=== PATIENT | female | born 1970 | race Caucasian/White ===

== ENCOUNTER → 2016-08-16 07:09 | Day surgery (SDC) | payer MEDICARE, MEDICAID ==
--- NOTE | 2016-08-08 17:33 | HP ---
PREOPERATIVE HISTORY AND PHYSICAL EXAM: DATE OF ADMISSION/SURGERY: 08/16/16 DATE OF OFFICE VISIT/ENCOUNTER: 08/08/16 ATTENDING SURGEON: Abbey Dailey MD PROCEDURE: Right wrist carpal tunnel release. CHIEF COMPLAINT: Numbness and tingling, right hand. HISTORY OF PRESENT ILLNESS: This is a 46-year-old female who complains of numbness and tingling in her bilateral hands for approximately a year now, the right is worse than the left. She does not recall any specific injury; however , she does feel like symptoms began when she was doing some cleaning work that seemed to aggravate or start the symptoms. She did that for about a month, but is not doing that anymore. Despite stopping the work, she continues to have the symptoms. She had a nerve conduction study, which showed a right carpal tunnel syndrome, moderate in degree. She has tried conservative treatment including bracing and cortisone injections, however, symptoms persist. She is interested in pursuing more definitive treatment at this time in the form of a right carpal tunnel release. The patient is currently being treated for hepatitis C. PAST MEDICAL HISTORY: History of heroin addiction. PAST SURGICAL HISTORY: None. CURRENT MEDICATIONS: 1. Gabapentin 300 mg one to two in the morning and one in the afternoon. 2. Suboxone 4-1 mg 1 tab b.i.d. ALLERGIES: AZITHROMYCIN causes diarrhea. FAMILY MEDICAL HISTORY: Significant for diabetes and cardiac disease. SOCIAL HISTORY: The patient is currently not working. She does admit to tobacco use. She smokes currently less than half a pack a day, but the amount has varied over the year. She has smoked since age 17. The patient denies at this time illicit drug use or alcohol use. She reports being 10 months sober. REVIEW OF SYSTEMS: General: Negative for fevers, chills, or night sweats. No known anesthesia problems. HEENT: Negative for headache, lightheadedness, or syncopal episodes. Integumentary: Negative for abrasions, lesions, or open wounds. Cardiothoracic: Negative for chest pain, palpitations, or edema. Negative for hypertension. Pulmonary: Negative for shortness of breath with exertion, chronic cough, or COPD. GI: Negative for nausea, vomiting, diarrhea , constipation, or GERD. : Negative for nocturia, urinary frequency, urgency , history of UTIs, or kidney problems. Musculoskeletal: Positive for current complaint. Negative for chronic or intermittent back pain or history of fractures. Neurological: Negative for history of seizure, stroke, or epilepsy. Endocrine: Negative for diabetes or thyroid issues. Hematologic: Negative for easy bruising, anemia, excessive bleeding, or history of DVT. Infectious Disease: Positive for hepatitis C. Negative for history of MRSA or HIV. PHYSICAL EXAMINATION GENERAL: Well-developed, well-nourished, 46-year-old female, in no acute distress. VITAL SIGNS: Height 5 feet 7 inches, weight 160 pounds, pulse rate 68, blood pressure 106/62. HEENT: Normocephalic, atraumatic. Pupils are equal, round, and reactive to light and accommodation. NECK: Supple. No palpable lymph nodes. Throat is clear. PULMONARY: Lungs are clear to auscultation bilaterally. No wheezes, rales, or rhonchi. CARDIOTHORACIC: Regular rate and rhythm. S1, S2. No murmurs, rubs, or gallops. No edema. ABDOMEN: Positive bowel sounds, soft, nontender. NEUROLOGICAL: Alert and oriented x3. Cranial nerves II through XII are intact. Sensation is intact to light touch. MUSCULOSKELETAL: On exam of her bilateral upper extremity, she has a negative Tinel's at the median nerve bilaterally. Positive median nerve compression test on the right, negative on the left. Positive Phalen's test on the right. No thenar wasting, but some weakness with thumb abduction. DIAGNOSTIC STUDIES: EMG/nerve conduction study shows mild carpal tunnel syndrome at the right wrist. IMPRESSION: Right carpal tunnel syndrome. PLAN: The patient is scheduled to undergo a right wrist carpal tunnel release with Dr. Dailey on 08/16/16. She will return to the office 10 to 14 days postop for followup and suture removal. She will use [id number] medications including ibuprofen and/or Tylenol for postoperative pain management. AJ CEBALLOS [id number]/[facility] #: [id number] MTDD
[~2016-08-16 07:09] MED LIST: Acetaminophen TAB* 325 MG PO PRN; Buffered Lidocaine 1% SYR 3ML* 3 ML/SYR SYRINGE INTRADERM ONE; Buffered Lidocaine 1% SYR 3ML* 3 ML/SYR SYRINGE ONE; DiMENhydriNATE IV* 50 MG/ML VIAL IV PUSH PRN; Famotidine IV* 10 MG/ML 2 ML (20 mg) IV ONE; Famotidine IV* 10 MG/ML 2 ML (20 mg) ONE; Ketorolac INJ* 30 MG/ML 1 ML VIAL ONE; Lidocaine 1% INJ* 10 MG/ML 30 ML SDV ONE; Lidocaine 2% PF * 5 ML VIAL ONE; Midazolam* 1 MG/ML 5 ML VIAL (5 MG) ONE; Ondansetron INJ* 2 MG/ML VIAL ONE; Propofol* 10 MG/ML 20 ML BTL IV PUSH ONE; fentaNYL* 50 MCG/ML 2 ML VIAL (100 MCG VIAL) ONE
[2016-08-16 09:52] VITALS: BP 101/55
--- NOTE | 2016-08-16 21:44 | OP ---
DATE OF OPERATION: 08/16/16 - [facility] DATE OF : 74 SURGEON: Abbey Dailey MD CAMP COORDINATOR: AJ Kruse ANESTHESIOLOGIST: Mojgan Jason MD ANESTHESIA: Local MAC. PRE-OP DIAGNOSIS: Right carpal tunnel syndrome. POST-OP DIAGNOSIS: Right carpal tunnel syndrome. OPERATIVE PROCEDURE: Right carpal tunnel release. ESTIMATED BLOOD LOSS: Zero. TOURNIQUET TIME: Five minutes. INDICATIONS: Theresa is a 46-year-old female with numbness and tingling in the medial nerve distribution of her right hand. She presents for right carpal tunnel release. DESCRIPTION OF PROCEDURE: The patient was brought to the operating room and was given a sedation anesthetic and a local infiltration of 10 cc of 1% plain lidocaine in the palm of her right hand. The skin of her right hand and forearm was prepped and draped in the usual sterile fashion. The hand and forearm were exsanguinated and the tourniquet elevated to 250 mmHg. A longitudinal incision was made in the palm in line with the ring finger and dissected through the subcutaneous tissue down to the transverse carpal ligament. The ligament was divided sharply with a knife and then more proximally with the scissors. The nerve was dissected free from the surrounding tissue and there was an area of moderate compression in the mid portion of the ligament. The wound was irrigated and skin edges were reapproximated with 4-0 nylon suture. The wound was dressed with Xeroform, 4x4, Webril, and an RAMA wrap. The patient tolerated the procedure well and was brought to the recovery room in good condition. [id number]/[facility] #: [id number] MTDD
== END | disposition home or self-care (01) ==
LOC: OREAST 07:09
PROVIDERS: ATTEND Orthopaedic Surgery
DX: G56.01 Carpal tunnel syndrome, right upper limb (principal); F17.210 Nicotine dependence, cigarettes, uncomplicated
CPT/HCPCS: J1885; J2250; J2405; J2704; J3010

== ENCOUNTER 2018-06-19 20:26 | Emergency (ER) | payer MEDICARE, MEDICAID ==
[2018-06-19 20:35] VITALS: BP 117/45
--- NOTE | 2018-06-19 20:39 | UC ---
Respiratory Complaint HPI - HPI Summary HPI Summary: 48 yo female presents with sinus pain/pressure/congestion, frontal headache, post nasal drip, sore throat, and dry cough for the last 5 days. She has not been taking anything OTC. She is still smoking daily. Denies fever, chills, SOB , chest pain. - History of Current Complaint Chief Complaint: UCRespiratory Stated Complaint: COUGH, THROAT, EARS AND A HEADACHE Time Seen by Provider: 06/19/18 20:29 Hx Obtained From: Patient Hx Last Menstrual Period: 2 WEEKS AGO Onset/Duration: Gradual Onset Timing: Constant Severity Initially: Mild Severity Currently: Mild Pain Intensity: 3 Pain Scale Used: 0-10 Numeric Character: Cough: Nonproductive - Allergies/Home Medications Allergies/Adverse Reactions: Allergies Allergy/AdvReac Type Severity Reaction Status Date / Time azithromycin Allergy Nausea And Verified 06/19/18 20:35 Vomiting clindamycin Allergy Nausea And Verified 06/19/18 20:35 Vomiting erythromycin base Allergy Tingling Verified 06/19/18 20:35 ibuprofen Allergy GI Upset Verified 06/19/18 20:35 PMH/Surg Hx/FS Hx/Imm Hx - Additional Past Medical History Additional PMH: Drug use Constipation - Surgical History Surgical History: Yes Surgery Procedure, Year, and Place: tubal ligation-1995 - Family History Known Family History: Positive: None - Social History Occupation: Employed Part-time, Student Lives: With Family Alcohol Use: None Substance Use Type: None Substance Use Comment - Amount & Last Used: HX OF HEROIN USE- CLEAN X 11 MONTHS PER PATIENT Smoking Status (MU): Current Every Day Smoker Type: Cigarettes Amount Used/How Often: <1/2 PPD Length of Time of Smoking/Using Tobacco: ON and Off for 28 Years Have You Smoked in the Last Year: Yes When Did the Patient Quit Smoking/Using Tobacco: 09/20/15 Household Exposure Type: Cigarettes - Immunization History Most Recent Influenza Vaccination: August 2015 Most Recent Tetanus Shot: Unsure Review of Systems All Other Systems Reviewed And Are Negative: Yes Constitutional: Positive: Negative Skin: Positive: Negative Eyes: Positive: Negative ENT: Positive: Sore Throat, Nasal Discharge, Sinus Congestion, Sinus Pain/ Tenderness Respiratory: Positive: Cough Cardiovascular: Positive: Negative Gastrointestinal: Positive: Negative Neurovascular: Positive: Negative Neurological: Positive: Negative Psychological: Positive: Negative Physical Exam - Summary Physical Exam Summary: GENERAL: NAD. WDWN. No pain distress. SKIN: No rashes, sores, lesions, or open wounds. HEENT: Head: AT/NC Eyes: EOM intact. Conjunctiva clear without inflammation or discharge. Ears: Hearing grossly normal. TMs intact, no bulging, erythema, or edema. Nose: Nasal mucosa mildly swollen and erythematous without discharge. TTP maxillary and frontal sinus. Positive post nasal drip Throat: Posterior oropharynx without exudates, erythema, or tonsillar enlargement. Uvula midline. NECK: Supple. Nontender. No lymphadenopathy. CHEST: CTAB. No r/r/w. No accessory muscle use. Breathing comfortably and in no distress. CV: RRR. Without m/r/g. Pulses intact. NEURO: Alert. PSYCH: Age appropriate behavior. Triage Information Reviewed: Yes Vital Signs: Initial Vital Signs Temp 98.2 F 06/19/18 20:31 Pulse 50 06/19/18 20:31 Resp 16 06/19/18 20:31 BP 117/45 06/19/18 20:31 Pulse Ox 99 06/19/18 20:31 Vital Signs Reviewed: Yes Diagnostic Evaluation - Laboratory O2 Sat by Pulse Oximetry: 99 Respiratory Course/Dx - Course Course Of Treatment: Sinusitis - Differential Dx/Diagnosis Provider Diagnoses: Sinusitis Discharge - Sign-Out/Discharge Documenting (check all that apply): Patient Departure All imaging exams completed and their final reports reviewed: No Studies - Discharge Plan Condition: Stable Disposition: HOME Prescriptions: Amoxicillin PO (*) [Amoxicillin 875 MG (*)] 875 mg PO BID #14 tab Fluticasone NASAL SPRAY 50MCG* [Flonase NASAL SPRAY 50MCG*] 2 spray BOTH NARES DAILY #1 btl Patient Education Materials: Sinusitis (ED) Forms: *School Release Referrals: Suleman Isaacs MD [Primary Care Provider] - Additional Instructions: If you develop a fever, shortness of breath, chest pain, new or worsening symptoms - please call your PCP or go to the ED. - Billing Disposition and Condition Condition: STABLE Disposition: Home - Attestation Statements Provider Attestation: Per institutional requirements, I have reviewed the chart, however, I was not consulted specifically or made aware of this patient by the midlevel provider. I did not personally evaluate, interact with , or disposition this patient.
[2018-06-19] MEDS ORDERED: Amoxicillin PO (*) 500 MG CAP PO ONE (20:49)
== END 2018-06-19 21:17 | disposition home or self-care (01) ==
LOC: UCEAST 20:26
DX: J32.9 Chronic sinusitis, unspecified (principal); F17.210 Nicotine dependence, cigarettes, uncomplicated; Z88.1 Allergy status to other antibiotic agents; Z88.6 Allergy status to analgesic agent
CPT/HCPCS: 99212; A9270-GY; G0463

== ENCOUNTER 2021-04-23 15:34 | Observation (INO) ==
[2021-04-23] MEDS ORDERED: Lactated Ringers 1000 ml BAG 1,000 ML IV ONE (17:05)
[2021-04-23 17:42] LABS: ABS Lymphocytes 1.7 10^3/ul (1.0-4.8); ABS Monocytes 0.3 10^3/ul (0-0.8); Hematocrit 45 % (35-47); Hemoglobin 15.3 g/dL (12.0-16.0); Mean Corpuscular HGB Conc 34 g/dL (31-36); Mean Corpuscular Hemoglobin 32 pg (27-31); Mean Corpuscular Volume 93 fL (80-97); Mean Platelet Volume 9.9 fL (7.4-10.4); Platelet Count 212 10^3/uL (150-450); Red Blood Count 4.86 10^6 /uL (3.70-4.87); Red Cell Distribution Width 14 % (10-15); White Blood Count 10.1 10^3/uL (3.5-10.8)
[2021-04-23 17:59] LABS: ALT 10 U/L (7-52); AST 13 U/L (13-39); Albumin 4.8 g/dL (3.2-5.2); Albumin/Globulin Ratio 1.3 (1-3); Alkaline Phosphatase 96 U/L (35-149); Anion Gap 14 mmol/L (2-11); Blood Urea Nitrogen 15 mg/dL (6-24); CO2 Carbon Dioxide 29 mmol/L (22-32); Calcium 10.3 mg/dL (8.6-10.3); Chloride 102 mmol/L (101-111); Creatine Kinase 46 U/L (10-223); EGFR African American 96.4 (>60); EGFR Non-African American 79.7 (>60); Globulin 3.7 g/dL (2-4); Glucose 102 mg/dL (70-100); Potassium 3.3 mmol/L (3.5-5.0); Sodium 145 mmol/L (135-145); Total Protein 8.5 g/dL (6.4-8.9)
[2021-04-23 18:29] LABS: Acetaminophen < 15 mcg/mL; Alcohol, S < 13 mg/dL (<13); Salicylate < 2.50 mg/dL (<30)
[2021-04-23 18:42] LABS: TSH Ultra Thyroid Stim Horm 1.31 mcIU/mL (0.34-5.60)
[2021-04-23] MEDS: Potassium Chlor 20 meq TAB.ER PO ONE (18:49)
[2021-04-24 00:14] LABS: Urine Appearance Cloudy; Urine Bilirubin Negative (Negative); Urine Blood 1+ (Negative); Urine Color Yellow; Urine Glucose Negative (Negative); Urine Ketones 1+ (Negative); Urine Nitrite Negative (Negative); Urine Protein 1+(30 mg/dL) (Negative); Urine Specific Gravity 1.029 (1.002-1.030); Urine Urobilinogen Negative (Negative)
[2021-04-24 00:21] LABS: Urine Bacteria 1+ (Absent); Urine Red Blood Cell 2+(6-10/hpf) (Absent); Urine Squamous Epithelial Cell Present (Absent); Urine White Blood Cell Trace(0-5/hpf) (Absent)
[2021-04-24 00:41] LABS: Urine Benzodiazepine Screen None Detected (None Detect); Urine Cannabinoids Screen None Detected (None Detect); Urine Opiates Screen None Detected (None Detect)
[2021-04-24] MEDS ORDERED: Lactated Ringers 1000 ml BAG 1,000 ML IV ONE ×3 (07:28→15:52)
[2021-04-24 09:09] LABS: Anion Gap 12 mmol/L (2-11); Blood Urea Nitrogen 13 mg/dL (6-24); CO2 Carbon Dioxide 28 mmol/L (22-32); Calcium 9.8 mg/dL (8.6-10.3); Chloride 103 mmol/L (101-111); EGFR African American 96.4 (>60); EGFR Non-African American 79.7 (>60); Glucose 106 mg/dL (70-100); Magnesium 2.1 mg/dL (1.9-2.7); Potassium 3.2 mmol/L (3.5-5.0); Sodium 143 mmol/L (135-145)
[2021-04-24 09:12] LABS: Troponin I 0.01 ng/mL (<0.03)
[2021-04-24 15:30] LABS: C Reactive Protein 4.13 mg/L (<8.01)
[2021-04-24] MEDS ORDERED: Al Hydrox/Mg Hydrox/Simet LIQ 30 ML UDC PO PRN (15:45)
[2021-04-24] MEDS ORDERED: KCL 20 MEQ/100 ML IVPREMIX 20 MEQ/100 ML BAG IV ONE (15:53)
[2021-04-24 16:34] LABS: HCG Pregnancy < 0.60 mIU/mL
[2021-04-25 07:13] LABS: ABS Basophils 0.1 10^3/ul (0-0.2); ABS Monocytes 0.5 10^3/ul (0-0.8); Eosinophil % 0.1 %; Hematocrit 42 % (35-47); Hemoglobin 14.5 g/dL (12.0-16.0); Lymphocyte % 28.2 %; Mean Corpuscular HGB Conc 35 g/dL (31-36); Mean Corpuscular Hemoglobin 32 pg (27-31); Mean Corpuscular Volume 92 fL (80-97); Nucleated Red Blood Cells % 0.1; Platelet Count 180 10^3/uL (150-450); Red Blood Count 4.54 10^6 /uL (3.70-4.87); Red Cell Distribution Width 14 % (10-15); White Blood Count 10.7 10^3/uL (3.5-10.8)
[2021-04-25 07:26] LABS: Calcium 9.4 mg/dL (8.6-10.3); EGFR African American 136.4 (>60); EGFR Non-African American 112.7 (>60); Magnesium 1.7 mg/dL (1.9-2.7); Potassium 3.4 mmol/L (3.5-5.0)
[2021-04-25 13:42] LABS: HIV 4th Generation Nonreactive (Nonreactive)
[2021-04-25 14:10] LABS: Hepatitis C Antibody Reactive (Negative)
[2021-04-26 12:16] LABS: Rapid COVID-19 Molecular Undetected (Undetected)
[2021-04-26 14:04] VITALS: BP 135/83
== END 2021-04-26 14:30 | disposition home or self-care (01) ==
LOC: ED 15:34 → MEDTELE 15:34 → SUATTDRO 04-24 19:55
PROVIDERS: ADMIT Internal Medicine; ATTEND Internal Medicine